=== PATIENT | female | born 1990 | race American Indian/Alaskan Native ===

== ENCOUNTER 2020-01-03 15:23 | Emergency (ER) | payer SELFPAY ==
--- NOTE | 2020-01-03 17:14 | Emergency Department Report ---
ED Female HPI - General Chief complaint: Abdominal Pain Stated complaint: 7WEEKS?PREG BLEEDING Time Seen by Provider: 01/03/20 16:57 Source: patient Mode of arrival: Ambulatory Limitations: No Limitations - History of Present Illness Initial comments: 29-year-old -[place] female presents to the emergency room for pelvic pain. Patient suspect that she may be 7 weeks . Patient reports her last known menstrual period was 11/18/2019. Patient reports that she had some vaginal spotting on 12/24/2019. Then she started having brownish discharge and then bled for 1 more day and that is been it. Patient reports she is taken 3 home test which is inconclusive to her. Patient had a negative blood test. Patient reports she had some nausea but no vomiting. She is has a history of ectopic November 2018. Patient reports that she had a right fallopian tube removal. Patient states that she has been having some mild cramping which she usually has severe cramping with her period. Patient reports no control. She has no past medical history except asthma and has not been needed to be treated for years. Patient's only surgical history is a fallopian tube on the right removal. She currently takes no medications on a daily basis. MD Complaint: pelvic pain - Related Data Previous Rx's Medication Instructions Recorded Last Taken Type Nitrofurantoin Frontier/M-Cryst 100 mg PO Q12HR 10 Days #20 capsule 01/03/20 Unknown Rx [Macrobid CAP] Allergies Allergy/AdvReac Type Severity Reaction Status Date / Time No Known Allergies Allergy Unverified 01/03/20 15:29 ED Review of Systems ROS: Stated complaint: 7WEEKS?PREG BLEEDING Other details as noted in HPI ED Past Medical Hx - Past Medical History Previous Medical History?: No - Surgical History Past Surgical History?: Yes Additional Surgical History: Ectopic - Medications Home Medications: Home Medications Medication Instructions Recorded Confirmed Last Taken Type Nitrofurantoin Frontier/M-Cryst 100 mg PO Q12HR 10 Days #20 capsule 01/03/20 Unknown Rx [Macrobid CAP] ED Physical Exam - General Limitations: No Limitations General appearance: alert, in no apparent distress - Head Head exam: Present: atraumatic, normocephalic - Eye Eye exam: Present: normal appearance - ENT ENT exam: Present: mucous membranes moist - GI/Abdominal GI/Abdominal exam: Present: soft. Absent: distended, tenderness, guarding, rebound - Back Exam Back exam: Present: normal inspection - Neurological Exam Neurological exam: Present: alert, oriented X3, normal gait - Psychiatric Psychiatric exam: Present: normal affect, normal mood - Skin Skin exam: Present: warm, dry, intact, normal color. Absent: rash ED Medical Decision Making - Lab Data Result diagrams: 01/03/20 16:30 01/03/20 16:30 - Medical Decision Making 29-year-old -[place] female presents to the emergency room for pelvic pain. Patient suspect that she may be 7 weeks . Patient reports her last known menstrual period was 11/18/2019. Patient reports that she had some vaginal spotting on 12/24/2019. Then she started having brownish discharge and then bled for 1 more day and that is been it. Patient reports she is taken 3 home test which is inconclusive to her. Patient had a negative blood test. Patient reports she had some nausea but no vomiting. She is has a history of ectopic November 2018. Patient reports that she had a right fallopian tube removal. Patient states that she has been having some mild cramping which she usually has severe cramping with her period. Patient reports no control. She has no past medical history except asthma and has not been needed to be treated for years. Patient's only surgical history is a fallopian tube on the right removal. She currently takes no medications on a daily basis. Urinalysis shows that patient has a UTI. Negative blood test. Other labs are stable. Patient be treated for urinary tract infection. Patient reports she is not convinced that she is not . Discussed the patient she can follow-up with the [facility]. Critical care attestation.: If time is entered above; I have spent that time in minutes in the direct care of this critically ill patient, excluding procedure time. ED Disposition Clinical Impression: Pelvic cramping, UTI (urinary tract infection) Disposition: TO HOME OR SELFCARE Is pt being admited?: No Does the pt Need Aspirin: No Condition: Stable Instructions: Abdominal Pain (ED), Urinary Tract Infection in Women (ED) Additional Instructions: test is negative. You have a urinary tract infection you will be treated with antibiotics instructed to increase your water intake. Follow-up with an [facility]. Prescriptions: Nitrofurantoin Frontier/M-Cryst [Macrobid CAP] 100 mg PO Q12HR 10 Days #20 capsule Referrals: PRIMARY CARE [Primary Care Provider] - 3-5 Days [facility] [Provider Group] - 3-5 Days Forms: Work/School Release Form(ED)
[2020-01-03 17:24] LABS: Basophils % (Auto) 0.7 % (0.0-1.8); Eosinophils # (Auto) 0.2 K/mm3 (0.0-0.4); Eosinophils % (Auto) 2.8 % (0.0-4.3); Hematocrit 38.3 % (30.3-42.9); Hemoglobin 13.1 gm/dl (10.1-14.3); Lymphocytes # (Auto) 2.3 K/mm3 (1.2-5.4); Lymphocytes % (Auto) 33.5 % (13.4-35.0); Mean Corpuscular HGB Conc 34 % (30-34); Mean Corpuscular Volume 97 fl (79-97); Monocytes # (Auto) 0.5 K/mm3 (0.0-0.8); Monocytes % (Auto) 7.6 % (0.0-7.3); Platelet Count 245 K/mm3 (140-440); Red Blood Count 3.94 M/mm3 (3.65-5.03); Red Cell Distribution Width 13.1 % (13.2-15.2)
[2020-01-03 17:50] LABS: Alanine Aminotransferase 14 units/L (7-56); Albumin 4.2 g/dL (3.9-5); Blood Urea Nitrogen 11 mg/dL (7-17); Calcium 9.2 mg/dL (8.4-10.2); Hemolysis Index 15
[2020-01-03 17:51] LABS: BUN/Creatinine Ratio 16
[2020-01-03 17:57] LABS: Bacteria,Urine 1+ /HPF (Negative); Bilirubin,Urine NEG (Negative); Blood,Urine NEG (Negative); Color,Urine Yellow (Yellow); Mucus,Urine 2+ /HPF; Protein,Urine <15 mg/dL mg/dL (Negative); Urobilinogen,Urine < 2.0 mg/dL (<2.0)
== END 2020-01-03 19:00 | disposition home or self-care (01) ==
LOC: ED 15:23
DX: O23.41 Unspecified infection of urinary tract in pregnancy, first trimester (principal); O26.891 Other specified pregnancy related conditions, first trimester; R10.2 Pelvic and perineal pain; Z3A.01 Less than 8 weeks gestation of pregnancy; Z98.890 Other specified postprocedural states; Z79.899 Other long term (current) drug therapy
CPT/HCPCS: 36415; 80053; 81001; 84702; 85025; 87086